=== PATIENT | male | born 1960 | race African-American/Black ===

== ENCOUNTER 2017-08-14 11:44 | Inpatient (IN) | payer BC ==
[~2017-08-14] VITALS: Ht 195.6 cm; Wt 77.4 kg
[~2017-08-14 11:44] MED LIST: INDOCIN50 MG PO
[2017-08-14 12:30] LABS: BASOPHIL (%) 0.6 % (0-1); BASOPHIL COUNT 0.1 K/uL (0-0.1); EOSINOPHIL (%) 0.2 % (0-5); HEMATOCRIT 42.8 % (38.0-50.0); HEMOGLOBIN 13.8 G/DL (12.5-16.6); IMMATURE GRANULOCYTE (%) 0.4 % (0.0-0.7); LYMPHOCYTE (%) 11.9 % (15-42); LYMPHOCYTE COUNT 1.3 K/uL (1.0-2.8); MCH 26.6 PG (29.0-34.0); MCHC 32.2 G/DL (30.0-36.0); MCV 82.6 FL (86-99); MONOCYTE (%) 5.9 % (3-12); MONOCYTE COUNT 0.6 K/uL (0-0.8); NEUTROPHIL COUNT 8.8 K/uL (1.8-6.4); PLATELET COUNT 307 K/uL (156-360); RBC DIS.WIDTH-CV 13.2 % (11.8-14.6); RBC DIS.WIDTH-SD 39.8 % (39-53); RED BLOOD COUNT 5.18 M/uL (4.00-5.50); WHITE BLOOD COUNT 10.8 K/uL (4.1-10.2)
[2017-08-14 12:35] LABS: INTER. NORMALIZED RATIO 1.3
[2017-08-14 12:39] LABS: CHLORIDE 105 mEq/L (99-109); POTASSIUM 4.1 mEq/L (3.7-5.4); SODIUM 141 mEq/L (136-147)
[2017-08-14 12:41] LABS: GLUCOSE 129 mg/dL (70-99)
[2017-08-14 12:44] LABS: SERUM ETHYL ALCOHOL < 10 mg/dL
[2017-08-14 12:45] LABS: CREATININE 0.9 mg/dL (0.6-1.3); GFR ESTIMATE (CALCULATED) > 59 mL/min/ (58.99-99999)
[2017-08-14 12:46] LABS: UREA NITROGEN (BUN) 10 mg/dL (9-23)
[2017-08-14 12:49] LABS: TROP-I INTERPRETATION NEGATIVE; TROPONIN-I 0.02 ng/mL (0.0-0.30)
[2017-08-14 16:42] LABS: HDL CHOLESTEROL 39 MG/DL (Desirable>=40); LDL CHOLESTEROL 65 mg/dL (Desirable<100); NON-HDL CHOLESTEROL 73 mg/dL (Desirable<160); TOTAL CHOLESTEROL 112 mg/dL (Desirable<200); TRIGLYCERIDES 42 MG/DL (Normal: <150)
[2017-08-14 19:33] LABS: APPEARANCE SL.HAZY ((CLEAR)); BILIRUBIN NEGATIVE; BLOOD NEGATIVE; COLOR YELLOW ((YELLOW)); GLUCOSE (STRIP) 50; KETONES 20; LEUKOCYTES NEGATIVE; NITRITE NEGATIVE; PROTEIN (STRIP) 30; SPECIFIC GRAVITY 1.029 (1.000-1.030)
[2017-08-14 19:35] LABS: BACTERIA RARE /HPF; EPITHELIAL CELLS NONE SEEN /HPF; MUCUS 2+ /LPF; RED BLOOD CELLS 0-5 /HPF (0-5); UCUL ADDED? NO; WHITE BLOOD CELLS 0-5 /HPF (0-5)
[2017-08-14 19:44] LABS: AMPHETAMINE NEGATIVE (500 ng/mL); BARBITURATES NEGATIVE (200 ng/mL); BENZODIAZEPINES NEGATIVE (150 ng/mL); BUPRENORPHINE NEGATIVE (10 ng/mL); COCAINE PRESUMPTIVE POSITIVE (150 ng/mL); METHADONE NEGATIVE (200 ng/mL); METHAMPHETAMINE NEGATIVE (500 ng/mL); OPIATES (MORPHINE) NEGATIVE (100 ng/mL); OXYCODONE NEGATIVE (100 ng/mL); PHENCYCLIDINE NEGATIVE (25 ng/mL); PROPOXYPHENE NEGATIVE (300 ng/mL); THC CANNABINOIDS NEGATIVE (50 ng/mL); TRICYCLIC ANTIDEPRESSANTS NEGATIVE (300 ng/mL)
[2017-08-14 21:49] VITALS: BP 161/81
[2017-08-14 23:57] VITALS: BP 182/88
[2017-08-15] VITALS (26 sets, daily range): BP systolic 132–188; BP diastolic 59–111
[2017-08-15 05:42] LABS: BASOPHIL (%) 0.5 % (0-1); BASOPHIL COUNT 0.1 K/uL (0-0.1); EOSINOPHIL (%) 0.1 % (0-5); HEMATOCRIT 43.3 % (38.0-50.0); HEMOGLOBIN 13.5 G/DL (12.5-16.6); IMMATURE GRANULOCYTE (%) 0.3 % (0.0-0.7); MCH 25.2 PG (29.0-34.0); MCHC 31.2 G/DL (30.0-36.0); MCV 80.9 FL (86-99); MONOCYTE (%) 6.1 % (3-12); MONOCYTE COUNT 0.7 K/uL (0-0.8); NEUTROPHIL COUNT 9.6 K/uL (1.8-6.4); PLATELET COUNT 355 K/uL (156-360); RBC DIS.WIDTH-CV 13.2 % (11.8-14.6); RED BLOOD COUNT 5.35 M/uL (4.00-5.50); WHITE BLOOD COUNT 11.4 K/uL (4.1-10.2)
[2017-08-15 06:04] LABS: CHLORIDE 102 MEQ/L (99-109); CREATININE 0.7 MG/DL (0.6-1.3); GFR ESTIMATE (CALCULATED) > 59 mL/min/ (58.99-99999); GLUCOSE 145 mg/dL (70-99); POTASSIUM 3.9 MEQ/L (3.7-5.4); SODIUM 138 MEQ/L (136-147); UREA NITROGEN (BUN) 12 mg/dL (9-23)
[2017-08-15 09:57] LABS: HEMOGLOBIN A1c (GLYCOHEMOGLOB) 6.3 % (Below 5.7)
[2017-08-15 20:14] LABS: CHLORIDE 102 MEQ/L (99-109); POTASSIUM 4.1 MEQ/L (3.7-5.4); SODIUM 138 MEQ/L (136-147)
[2017-08-15 20:19] LABS: CREATININE 0.8 MG/DL (0.6-1.3); GFR ESTIMATE (CALCULATED) > 59 mL/min/ (58.99-99999); GLUCOSE 136 mg/dL (70-99); UREA NITROGEN (BUN) 14 mg/dL (9-23)
[2017-08-16] VITALS (22 sets, daily range): BP systolic 137–180; BP diastolic 66–108
[2017-08-17] VITALS (19 sets, daily range): BP systolic 143–199; BP diastolic 57–133
[2017-08-18] VITALS (18 sets, daily range): BP systolic 131–170; BP diastolic 58–94
[2017-08-18 13:05] LABS: CHLORIDE 105 MEQ/L (99-109); CREATININE 0.7 MG/DL (0.6-1.3); GFR ESTIMATE (CALCULATED) > 59 mL/min/ (58.99-99999); GLUCOSE 153 mg/dL (70-99); POTASSIUM 3.7 MEQ/L (3.7-5.4); SODIUM 139 MEQ/L (136-147); UREA NITROGEN (BUN) 9 mg/dL (9-23)
[2017-08-18 18:41] LABS: CHLORIDE 104 MEQ/L (99-109); GFR ESTIMATE (CALCULATED) > 59 mL/min/ (58.99-99999); GLUCOSE 121 mg/dL (70-99); POTASSIUM 3.6 MEQ/L (3.7-5.4); SODIUM 139 MEQ/L (136-147); UREA NITROGEN (BUN) 10 mg/dL (9-23)
[2017-08-19] VITALS (10 sets, daily range): BP systolic 112–170; BP diastolic 55–113
[2017-08-19 01:13] LABS: CHLORIDE 103 mEq/L (99-109); POTASSIUM 4.1 mEq/L (3.7-5.4); SODIUM 140 mEq/L (136-147)
[2017-08-19 01:15] LABS: GLUCOSE 128 mg/dL (70-99)
[2017-08-19 01:19] LABS: CREATININE 0.9 mg/dL (0.6-1.3); GFR ESTIMATE (CALCULATED) > 59 mL/min/ (58.99-99999); UREA NITROGEN (BUN) 9 mg/dL (9-23)
[2017-08-19 06:58] LABS: CHLORIDE 103 MEQ/L (99-109); CREATININE 0.8 MG/DL (0.6-1.3); GFR ESTIMATE (CALCULATED) > 59 mL/min/ (58.99-99999); GLUCOSE 159 mg/dL (70-99); POTASSIUM 3.8 MEQ/L (3.7-5.4); SODIUM 140 MEQ/L (136-147); UREA NITROGEN (BUN) 10 mg/dL (9-23)
[2017-08-20] VITALS (7 sets, daily range): BP systolic 117–142; BP diastolic 61–93
[2017-08-21] VITALS (7 sets, daily range): BP systolic 104–132; BP diastolic 61–79
[2017-08-22 03:33] VITALS: BP 129/75
[2017-08-22 08:03] VITALS: BP 131/66
[2017-08-22 11:57] VITALS: BP 132/71
[2017-08-22 16:12] VITALS: BP 141/79
[2017-08-22 19:52] VITALS: BP 142/72
[2017-08-22 23:34] VITALS: BP 125/68
[2017-08-23 07:33] LABS: BASOPHIL COUNT 0.1 K/uL (0-0.1); EOSINOPHIL (%) 2.2 % (0-5); EOSINOPHIL COUNT 0.2 K/uL (0-0.3); HEMATOCRIT 38.8 % (38.0-50.0); HEMOGLOBIN 12.1 G/DL (12.5-16.6); IMMATURE GRANULOCYTE (%) 0.3 % (0.0-0.7); LYMPHOCYTE (%) 28.6 % (15-42); LYMPHOCYTE COUNT 2.5 K/uL (1.0-2.8); MCH 25.9 PG (29.0-34.0); MCHC 31.2 G/DL (30.0-36.0); MCV 82.9 FL (86-99); MONOCYTE (%) 8.3 % (3-12); MONOCYTE COUNT 0.7 K/uL (0-0.8); NEUTROPHIL (%) 59.6 % (45-76); NEUTROPHIL COUNT 5.2 K/uL (1.8-6.4); PLATELET COUNT 328 K/uL (156-360); RBC DIS.WIDTH-CV 13.2 % (11.8-14.6); RBC DIS.WIDTH-SD 39.8 % (39-53); RED BLOOD COUNT 4.68 M/uL (4.00-5.50); WHITE BLOOD COUNT 8.7 K/uL (4.1-10.2)
[2017-08-23 07:42] LABS: ALBUMIN 3.4 G/DL (3.2-4.8); ALKALINE PHOSPHATASE 88 IU/L (3-129); ALT (GPT) 27 IU/L (3-49); AST (GOT) 21 IU/L (2-34); CHLORIDE 103 MEQ/L (99-109); CREATININE 0.8 MG/DL (0.6-1.3); GFR ESTIMATE (CALCULATED) > 59 mL/min/ (58.99-99999); GLUCOSE 124 mg/dL (70-99); POTASSIUM 4.3 MEQ/L (3.7-5.4); SODIUM 140 MEQ/L (136-147); TOTAL BILIRUBIN 0.3 MG/DL (0.0-1.0); TOTAL PROTEIN 6.4 G/DL (6.4-8.3); UREA NITROGEN (BUN) 12 mg/dL (9-23)
[2017-08-23 07:44] VITALS: BP 120/71
[2017-08-23 16:02] VITALS: BP 119/67
[2017-08-23 22:58] VITALS: BP 136/76
[2017-08-24 08:20] VITALS: BP 107/56
[2017-08-24 16:00] VITALS: BP 110/72
[2017-08-24 21:55] VITALS: BP 126/82
[2017-08-25 07:57] VITALS: BP 125/84
[2017-08-25 16:04] VITALS: BP 126/87
[2017-08-25 22:00] VITALS: BP 115/63
[2017-08-25 23:38] VITALS: BP 124/60
[2017-08-26 06:37] LABS: BASOPHIL (%) 1.1 % (0-1); BASOPHIL COUNT 0.1 K/uL (0-0.1); EOSINOPHIL (%) 1.3 % (0-5); EOSINOPHIL COUNT 0.1 K/uL (0-0.3); HEMATOCRIT 40.8 % (38.0-50.0); HEMOGLOBIN 12.6 G/DL (12.5-16.6); IMMATURE GRANULOCYTE (%) 0.2 % (0.0-0.7); LYMPHOCYTE (%) 26.9 % (15-42); LYMPHOCYTE COUNT 2.5 K/uL (1.0-2.8); MCH 25.8 PG (29.0-34.0); MCHC 30.9 G/DL (30.0-36.0); MCV 83.4 FL (86-99); MONOCYTE (%) 8.4 % (3-12); MONOCYTE COUNT 0.8 K/uL (0-0.8); NEUTROPHIL (%) 62.1 % (45-76); NEUTROPHIL COUNT 5.7 K/uL (1.8-6.4); PLATELET COUNT 330 K/uL (156-360); RBC DIS.WIDTH-CV 13.3 % (11.8-14.6); RED BLOOD COUNT 4.89 M/uL (4.00-5.50); WHITE BLOOD COUNT 9.1 K/uL (4.1-10.2)
[2017-08-26 07:07] LABS: CHLORIDE 102 MEQ/L (99-109); CREATININE 0.8 MG/DL (0.6-1.3); GFR ESTIMATE (CALCULATED) > 59 mL/min/ (58.99-99999); GLUCOSE 132 mg/dL (70-99); POTASSIUM 4.3 MEQ/L (3.7-5.4); SODIUM 138 MEQ/L (136-147); UREA NITROGEN (BUN) 12 mg/dL (9-23)
[2017-08-26 07:34] VITALS: BP 140/73
[2017-08-26 16:14] VITALS: BP 136/71
[2017-08-26 23:40] VITALS: BP 121/71
[2017-08-27 07:27] VITALS: BP 122/71
[2017-08-27 10:15] VITALS: BP 138/81
[2017-08-27] MEDS ORDERED: ATORVASTATIN CA80 MG PO (15:13)
[2017-08-27] MEDS ORDERED: ASPIR-LOW81 MG PO (15:13)
[2017-08-27] MEDS ORDERED: LISINOPRIL5 MG PO (15:13)
[2017-08-27] MEDS ORDERED: LABETALOL HCL100 MG PO (15:13)
== END 2017-08-27 17:26 | DRG 64 ==
LOC: EME 11:44 → ENRESERV 15:01 → 5SOUTH 15:51 → 4WEST 15:51 → EDOF 15:51 → 5SOUTH 21:36 → ENRESERV 22:24 → 4WEST 08-15 → ENRESERV 08-19 22:25 → 5SOUTH 08-20 01:53
PROVIDERS: Emergency Medicine; Hospitalist; Internal Medicine; Internal Medicine Critical Care Medicine; Surgery
DX: I63.9 Cerebral infarction, unspecified (principal); G93.6 Cerebral edema; G93.5 Compression of brain; I10 Essential (primary) hypertension; F14.10 Cocaine abuse, uncomplicated; G91.9 Hydrocephalus, unspecified; R29.702 NIHSS score 2; R27.0 Ataxia, unspecified; R47.81 Slurred speech; Z86.73 Personal history of transient ischemic attack (TIA), and cerebral infarction without residual deficits
CPT/HCPCS: 70450; 70544; 70549; 70553; 80048; 80048 91; 80053; 80061; 81003; 83036; 83930; 84484; 84999; 85025; 85610; 87493; 87641; 92507 GN; 92523 GN; 92610 GN; 93005; 97530 GO; 97530 GP; 99281; 99285; G0480; G0515 GN; J0360; J1650; J7050

== ENCOUNTER 2017-10-24 21:29 | Inpatient (IN) | payer BC ==
[~2017-10-24] VITALS: Ht 182.9 cm; Wt 75.0 kg
[~2017-10-24 21:29] MED LIST changes: +ASPIR-LOW81 MG PO; +ATORVASTATIN CA80 MG PO; +LABETALOL HCL100 MG PO; +LISINOPRIL5 MG PO
[2017-10-24 21:47] LABS: BASOPHIL (%) 0.5 % (0-1); EOSINOPHIL (%) 1.1 % (0-5); EOSINOPHIL COUNT 0.1 K/uL (0-0.3); HEMATOCRIT 32.8 % (38.0-50.0); HEMOGLOBIN 10.4 G/DL (12.5-16.6); IMMATURE GRANULOCYTE (%) 0.2 % (0.0-0.7); LYMPHOCYTE (%) 25.7 % (15-42); LYMPHOCYTE COUNT 2.1 K/uL (1.0-2.8); MCH 25.2 PG (29.0-34.0); MCHC 31.7 G/DL (30.0-36.0); MCV 79.6 FL (86-99); MONOCYTE (%) 10.9 % (3-12); MONOCYTE COUNT 0.9 K/uL (0-0.8); NEUTROPHIL (%) 61.6 % (45-76); PLATELET COUNT 278 K/uL (156-360); RBC DIS.WIDTH-CV 14.6 % (11.8-14.6); RBC DIS.WIDTH-SD 42.6 % (39-53); RED BLOOD COUNT 4.12 M/uL (4.00-5.50); WHITE BLOOD COUNT 8.2 K/uL (4.1-10.2)
[2017-10-24 21:53] LABS: INTER. NORMALIZED RATIO 1.4
[2017-10-24 21:55] LABS: PTT 37.8 SEC (25-37)
[2017-10-24 22:06] LABS: ALBUMIN 3.7 g/dL (3.2-4.8); CHLORIDE 104 mEq/L (99-109); POTASSIUM 3.8 mEq/L (3.7-5.4); SODIUM 141 mEq/L (136-147)
[2017-10-24 22:07] LABS: AMYLASE 34 IU/L (1-118)
[2017-10-24 22:08] LABS: GLUCOSE 131 mg/dL (70-99); TOTAL PROTEIN 6.5 g/dL (6.4-8.3)
[2017-10-24 22:10] LABS: TOTAL BILIRUBIN 0.5 mg/dL (0.0-1.0); TROP-I INTERPRETATION NEGATIVE; TROPONIN-I 0.16 ng/mL (0.0-0.30)
[2017-10-24 22:11] LABS: SERUM ETHYL ALCOHOL < 10 mg/dL
[2017-10-24 22:12] LABS: ALKALINE PHOSPHATASE 103 IU/L (3-129); CREATININE 0.9 mg/dL (0.6-1.3); GFR ESTIMATE (CALCULATED) > 59 mL/min/ (58.99-99999)
[2017-10-24 22:13] LABS: AST (GOT) 11 IU/L (2-34); UREA NITROGEN (BUN) 9 mg/dL (9-23)
[2017-10-24 22:15] LABS: ALT (GPT) 12 IU/L (3-49); LIPASE 18 U/L (1.0-51.0)
[2017-10-24] MEDS ORDERED: LISINOPRIL5 MG PO (22:21)
[2017-10-24] MEDS ORDERED: LABETALOL HCL100 MG PO (22:21)
[2017-10-24] MEDS ORDERED: LIPITOR80 MG PO (22:21)
[2017-10-24] MEDS ORDERED: ADULT ASPIRIN R81 MG PO (22:22)
[2017-10-25 00:58] VITALS: BP 132/72
[2017-10-25 01:39] LABS: HDL CHOLESTEROL 27 MG/DL (Desirable>=40); LDL CHOLESTEROL 41 mg/dL (Desirable<100); NON-HDL CHOLESTEROL 50 mg/dL (Desirable<160); TOTAL CHOLESTEROL 77 mg/dL (Desirable<200); TRIGLYCERIDES 45 MG/DL (Normal: <150)
[2017-10-25 08:06] VITALS: BP 142/79
[2017-10-25 11:56] VITALS: BP 144/83
[2017-10-25 19:12] VITALS: BP 119/71
[2017-10-25 23:34] VITALS: BP 99/59
[2017-10-26 03:36] VITALS: BP 109/63
[2017-10-26 08:40] VITALS: BP 99/60
[2017-10-26 08:53] LABS: APPEARANCE SL.HAZY ((CLEAR)); BILIRUBIN NEGATIVE; BLOOD NEGATIVE; COLOR YELLOW ((YELLOW)); GLUCOSE (STRIP) NEGATIVE; KETONES NEGATIVE; LEUKOCYTES NEGATIVE; NITRITE NEGATIVE; PROTEIN (STRIP) 30; SPECIFIC GRAVITY 1.025 (1.000-1.030)
[2017-10-26 09:14] LABS: HEMATOCRIT 34.2 % (38.0-50.0); HEMOGLOBIN 10.7 G/DL (12.5-16.6); MCH 24.8 PG (29.0-34.0); MCHC 31.3 G/DL (30.0-36.0); MCV 79.4 FL (86-99); PLATELET COUNT 286 K/uL (156-360); RBC DIS.WIDTH-CV 14.6 % (11.8-14.6); RBC DIS.WIDTH-SD 42.3 % (39-53); RED BLOOD COUNT 4.31 M/uL (4.00-5.50); WHITE BLOOD COUNT 9.7 K/uL (4.1-10.2)
[2017-10-26 09:27] LABS: HEMOGLOBIN A1c (GLYCOHEMOGLOB) 6.8 % (Below 5.7)
[2017-10-26 09:41] LABS: CHLORIDE 103 MEQ/L (99-109); CREATININE 0.8 MG/DL (0.6-1.3); GFR ESTIMATE (CALCULATED) > 59 mL/min/ (58.99-99999); GLUCOSE 124 mg/dL (70-99); SODIUM 138 MEQ/L (136-147); UREA NITROGEN (BUN) 10 mg/dL (9-23)
[2017-10-26 09:49] LABS: BACTERIA RARE /HPF; EPITHELIAL CELLS RARE /HPF; MUCUS 1+ /LPF; RED BLOOD CELLS 0-5 /HPF (0-5); UCUL ADDED? NO; WHITE BLOOD CELLS 0-5 /HPF (0-5)
[2017-10-26 11:17] VITALS: BP 128/64
[2017-10-26 16:35] VITALS: BP 120/70
== END 2017-10-26 21:36 | disposition short-term general hospital (02) | DRG 69 ==
LOC: EME → EDBD 21:29 → EDOF 23:30 → ENRESERV 23:37 → 4SOUTH 10-25 00:54
PROVIDERS: Emergency Medicine; Internal Medicine; Physician Assistant Medical; Specialist
PROC: B24BZZZ Ultrasonography of Heart with Aorta (ICD-10-PCS; principal; 2017-10-25)
DX: G45.9 Transient cerebral ischemic attack, unspecified (principal); F14.90 Cocaine use, unspecified, uncomplicated; I10 Essential (primary) hypertension; R47.81 Slurred speech; F14.10 Cocaine abuse, uncomplicated; R29.810 Facial weakness; D21.3 Benign neoplasm of connective and other soft tissue of thorax; I05.0 Rheumatic mitral stenosis; R29.704 NIHSS score 4; K59.00 Constipation, unspecified; I63.8 Other cerebral infarction; E78.5 Hyperlipidemia, unspecified; Z79.899 Other long term (current) drug therapy; Z82.3 Family history of stroke; I70.0 Atherosclerosis of aorta; D50.9 Iron deficiency anemia, unspecified; Z79.82 Long term (current) use of aspirin; Z86.73 Personal history of transient ischemic attack (TIA), and cerebral infarction without residual deficits
CPT/HCPCS: 36415; 70450; 70551; 71045; 80048; 80053; 80061; 80306 90; 81003; 81240 90; 82150; 82607; 83036; 83090 90; 83690; 84443; 84484; 85025; 85027; 85240 90; 85300 90; 85303 90; 85305 90; 85306 90; 85610; 85613 90; 85651; 85670 90; 85730; 85730 90; 86140; 86146 90; 86147 90; 86850; 86900; 86901; 87040; 93005; 93306; 95819; 99281; 99285; G0378; G0480; J1644; J2405